=== PATIENT | female | born 1955 ===

== ENCOUNTER 2018-01-06 10:32 | Emergency (ER) | payer OTHER ==
[2018-01-06 10:39] VITALS: BMI 25.6
[2018-01-06 10:43] VITALS: RESP 18
[2018-01-06] MEDS ORDERED: Sodium Chloride 0.9% 1,000 ML IV ONE (11:07)
[2018-01-06 11:26] LABS: EOS # 0.1 K/uL (0.0-0.7); HEMOGLOBIN 12.4 g/dL (11.0-16.0); LYMPH % 23.4 % (20.0-40.0); NEUT # 7.4 K/uL (1.8-7.0); WHITE BLOOD COUNT 10.5 K/uL (4.8-10.8)
[2018-01-06 11:28] LABS: BASO % 0.2 % (0.0-2.0); EOS % 0.7 % (0.0-4.0); LYMPH # 2.5 K/uL (1.0-4.3); MEAN CELL VOLUME 85.4 fL (81.0-99.0); MEAN CORPUSCULAR HEMOGLOBIN 28.7 pg (27.0-31.0); MEAN CORPUSCULAR HGB CONC 33.6 g/dL (33.0-37.0); MEAN PLATELET VOLUME 9.3 fL (7.2-11.7); MONO # 0.6 K/uL (0.0-0.8); MONO % 5.3 % (0.0-10.0); NEUT % 70.4 % (50.0-75.0); RBC 4.33 Mil/uL (3.80-5.20); RED CELL DISTRIBUTION WIDTH 12.7 % (11.5-14.5)
[2018-01-06] MEDS ORDERED: Sodium Chloride 0.9% 1,000 ML ONE (11:30)
[2018-01-06 11:43] LABS: SQUAMOUS EPITHIAL 1 /hpf (0-5); URINE BILIRUBIN NEGATIVE (NEGATIVE); URINE BLOOD NEGATIVE (NEGATIVE); URINE CLARITY Clear (Clear); URINE COLOR Straw (YELLOW); URINE GLUCOSE (UA) 3+ mg/dL (Normal); URINE LEUKOCYTE ESTERASE NEG Leu/uL (Negative); URINE PROTEIN NEGATIVE (NEGATIVE); URINE UROBILINOGEN NORMAL mg/dL (0.2-1.0)
[2018-01-06 11:47] LABS: ALB/GLOB RATIO 1.4 (1.0-2.1); ALT/SGPT 30 U/L (9-52); AST/SGOT 17 U/L (14-36); BLOOD UREA NITROGEN 13 mg/dL (7-17); CALCIUM 9.5 mg/dl (8.6-10.4); GFR AFRICAN-AMERICAN > 60; GFR NON-AFRICAN AMERICAN > 60
--- NOTE | 2018-01-06 12:09 | RAD ---
Date of service: 01/06/2018 HISTORY: Diabetic COMPARISON: Comparison made with prior study 06/04/2016. Jase prior. TECHNIQUE: Chest PA and lateral FINDINGS: LUNGS: Mild bibasilar atelectasis. PLEURA: No significant pleural effusion identified. No pneumothorax apparent. CARDIOVASCULAR: Cardiomegaly. OSSEOUS STRUCTURES: Small bone islands or osteomas again seen within the right humeral head. There is also small calcific density adjacent to greater tuberosity right humeral head, consistent with calcific tendinitis or bursitis VISUALIZED UPPER ABDOMEN: Normal. OTHER FINDINGS: None. IMPRESSION: Mild bibasilar atelectasis. Cardiomegaly.
[2018-01-06] MEDS ORDERED: (Novolin R) Insulin Human Regular 100 units/ml vial IV ONE (12:25)
--- NOTE | 2018-01-06 12:26 | RAD ---
Date of service: 01/06/2018 PROCEDURE: Left Ankle Radiographs. HISTORY: ankle pain COMPARISON: None FINDINGS: BONES: Normal. No fracture. JOINTS: Normal. No osteoarthritis. Ankle mortise maintained. Talar dome intact SOFT TISSUES: Normal. OTHER FINDINGS: None. IMPRESSION: Normal left ankle radiographs.
--- NOTE | 2018-01-06 12:26 | RAD ---
PROCEDURE: Left Hip X-ray Radiographs. HISTORY: hip pain COMPARISON: None. FINDINGS: BONES: Normal. No fracture. JOINTS: Normal. SOFT TISSUES: Normal. OTHER FINDINGS: None. IMPRESSION: Normal left hip radiographs.
[2018-01-06] MEDS ORDERED: (Novolin R) Insulin Human Regular 100 units/ml vial ONE (12:38)
--- NOTE | 2018-01-06 13:30 | C.PDOC ---
History Of Present Illness 62yo female, comes to ER with complaints of left ankle pain and left hip pain for the past 4 days. Patient denies any trauma or injury to the areas; additionally, she denies any fever, chills, abdominal pain, chest pain, shortness of breath, calf pain, long periods of immobilization, or recent surgeries. Patient was noted to have a blood sugar level of > 500 in triage and she reports she has a history of diabetes but is compliant with medications. Otherwise, she has no other medical complaints. Time Seen by Provider: 01/06/18 10:49 Chief Complaint (Nursing): Lower Extremity Problem/Injury History Per: Patient History/Exam Limitations: no limitations Onset/Duration Of Symptoms: Days Current Symptoms Are (Timing): Still Present Additional History Per: Patient Past Medical History Reviewed: Historical Data, Nursing Documentation, Vital Signs Vital Signs: Last Vital Signs Temp 98.4 F 01/06/18 10:42 Pulse 84 01/06/18 10:42 Resp 18 01/06/18 10:42 BP 159/92 H 01/06/18 10:42 Pulse Ox 97 01/06/18 13:37 - Medical History PMH: Diabetes, HTN Denies: Chronic Kidney Disease Surgical History: Coronary Stent (3 yrs ago) - [facility] Procedures CORONAR ARTERIOGR-2 CATH (07/30/13) CORONARY ARTERY STENT INSERTION [id number] (08/05/13) INSERTION OF ONE VASCULAR STENT (08/05/13) LEFT HEART CARDIAC CATH (07/30/13) LT HEART ANGIOCARDIOGRAM (07/30/13) PERCUTANEOUS TRANSLUMINAL CORONARY ANGIOPLASTY [PTCA] (08/05/13) PROCEDURE ON SINGLE VESSEL (08/05/13) Family History: States: No Known Family Hx, Unknown Family Hx - Social History Hx Tobacco Use: No Hx Alcohol Use: No Hx Substance Use: No - Immunization History Hx Tetanus Toxoid Vaccination: No Hx Influenza Vaccination: No (Not sure) Hx Pneumococcal Vaccination: No (Not sure) Review Of Systems Except As Marked, All Systems Reviewed And Found Negative. Constitutional: Negative for: Fever, Chills Cardiovascular: Negative for: Chest Pain Respiratory: Negative for: Shortness of Breath Gastrointestinal: Negative for: Vomiting, Abdominal Pain Musculoskeletal: Positive for: Other (left hip, left ankle pain) Skin: Negative for: Rash Neurological: Negative for: Weakness, Numbness Physical Exam - Physical Exam Appears: Non-toxic, No Acute Distress Skin: Normal Color, Warm, Dry, No Rash Head: Atraumatic, Normacephalic Eye(s): bilateral: Normal Inspection, EOMI Neck: Normal ROM, Supple Chest: Symmetrical Cardiovascular: Rhythm Regular Respiratory: Normal Breath Sounds Gastrointestinal/Abdominal: Normal Exam, Soft, No Tenderness Back: Normal Inspection Extremity: Normal ROM (FROM left ankle and calf.), Tenderness (tenderness to left lateral hip, no swelling or redness; tenderness to left ankle), No Pedal Edema, No Calf Tenderness, Capillary Refill (< 2 seconds), No Deformity, No Swelling, Other (no palpable cord noted to left calf) Extremity: Bilateral: Atraumatic, Hips Non-Tender Pulses: Left Dorsalis Pedis: Normal, Right Dorsalis Pedis: Normal Neurological/Psych: Oriented x3, Normal Speech, Normal Cognition, Normal Motor, Normal Sensation ED Course And Treatment - Laboratory Results Result Diagrams: 01/06/18 11:22 01/06/18 11:22 ECG: Interpreted By Me, Viewed By Me ECG Rhythm: Sinus Rhythm Interpretation Of ECG: Normal axis, normal intervals, LVH, no St/T wave changes Rate From EC O2 Sat by Pulse Oximetry: 97 (RA) Pulse Ox Interpretation: Normal Medical Decision Making Medical Decision Making: Assessment: Hip pain, ankle pain, hyperglycemia Plan: -- EKG -- Labs -- IV FLuids -- Tramadol 50mg PO -- Human insulin 10 units -- XR left hip -- XR left ankle hyperglycemia leg pain patient repeat bs 202. images nad, will discharge patient home to follow up with pmd in 2 days. Disposition Counseled Patient/Family Regarding: Studies Performed, Diagnosis, Need For Followup, Rx Given - Disposition Referrals: Humberto John PA [Physician [facility]] - Disposition: HOME/ ROUTINE Disposition Time: 13:47 Condition: IMPROVED Additional Instructions: follow up with your doctor within in 2 days call to make an appointment take medication as needed for pain return to ER if symptoms worsens or progress Prescriptions: traMADol [Ultram] 50 mg PO TID PRN #12 tab PRN Reason: Pain, Moderate (4-7) Instructions: Hyperglycemia, Adult, Joint Pain Forms: Gen Discharge Inst Kazakh, [employer] (Kazakh) Print Language: CITIZEN OF [place] - Clinical Impression Clinical Impression: Hyperglycemia, Joint pain - Scribe Statement The provider has reviewed the documentation as recorded by the Hernandezibever Gaytan Provider Attestation: All medical record entries made by the Stephanie were at my direction and personally dictated by me. I have reviewed the chart and agree that the record accurately reflects my personal performance of the history, physical exam, medical decision making, and the department course for this patient. I have also personally directed, reviewed, and agree with the discharge instructions and disposition.
[2018-01-06 14:32] VITALS: BP 167/87; PULSE 71; TEMP 98; O2SAT 95
--- NOTE | 2018-01-06 17:18 | CARD ---
APPROVED REPORT Date of service: 01/06/2018 EKG Measurement Heart [id number] <Conclusion> Normal sinus rhythm Minimal voltage criteria for LVH, may be normal variant Borderline ECG
== END 2018-01-06 14:30 | disposition home or self-care (01) ==
LOC: C.ER 10:32
DX: E11.65 Type 2 diabetes mellitus with hyperglycemia (principal); M25.572 Pain in left ankle and joints of left foot; M25.552 Pain in left hip
CPT/HCPCS: 71046; 73502; 73610; 80053; 81001; 82948; 85025; 93005; 96361; 96374; 99285; J7030

== ENCOUNTER 2018-08-14 11:45 | Emergency (ER) | payer OTHER ==
[2018-08-14 11:46] VITALS: BMI 25.6
[2018-08-14 13:07] VITALS: RESP 18; TEMP 98.5; O2SAT 98
[2018-08-14 13:58] LABS: BASO # 0.1 K/uL (0.0-0.2); BASO % 0.5 % (0.0-2.0); EOS # 0.2 K/uL (0.0-0.7); EOS % 1.4 % (0.0-4.0); HEMOGLOBIN 13.1 g/dL (11.0-16.0); LYMPH # 3.7 K/uL (1.0-4.3); LYMPH % 27.3 % (20.0-40.0); MEAN CELL VOLUME 85.8 fL (81.0-99.0); MEAN CORPUSCULAR HEMOGLOBIN 28.5 pg (27.0-31.0); MEAN CORPUSCULAR HGB CONC 33.2 g/dL (33.0-37.0); MEAN PLATELET VOLUME 8.6 fL (7.2-11.7); MONO # 0.7 K/uL (0.0-0.8); NEUT % 65.8 % (50.0-75.0); NRBC % 0.1 % (0.0-2.0); RBC 4.61 Mil/uL (3.80-5.20); RED CELL DISTRIBUTION WIDTH 13.2 % (11.5-14.5); WHITE BLOOD COUNT 13.7 K/uL (4.8-10.8)
[2018-08-14 14:10] LABS: ALB/GLOB RATIO 1.3 (1.0-2.1); ALBUMIN 4.6 g/dL (3.5-5.0); ALT/SGPT 17 U/L (9-52); AST/SGOT 23 U/L (14-36); BLOOD UREA NITROGEN 21 mg/dL (7-17); CALCIUM 10.4 mg/dl (8.6-10.4); GFR NON-AFRICAN AMERICAN > 60
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
--- NOTE | 2018-08-14 14:52 | RAD ---
Date of service: 08/14/2018 HISTORY: r/o PTX COMPARISON: 01/06/2018 TECHNIQUE: Chest PA and lateral FINDINGS: LUNGS: No active pulmonary disease. PLEURA: No significant pleural effusion identified. No pneumothorax apparent. CARDIOVASCULAR: No aortic atherosclerotic calcification present. Normal cardiac size. No pulmonary vascular congestion. OSSEOUS STRUCTURES: No significant abnormalities. VISUALIZED UPPER ABDOMEN: Normal. OTHER FINDINGS: None. IMPRESSION: No active disease.
[2018-08-14 15:31] VITALS: BP 150/94; PULSE 78
--- NOTE | 2018-08-17 12:11 | CARD ---
APPROVED REPORT Date of service: 08/14/2018 EKG Measurement Heart [id number] <Conclusion> Normal sinus rhythm Left ventricular hypertrophy with repolarization abnormality Abnormal ECG
== END 2018-08-14 15:29 | disposition home or self-care (01) ==
LOC: C.ER 11:45
DX: T14.8XXA Other injury of unspecified body region, initial encounter (principal); V49.59XA Passenger injured in collision with other motor vehicles in traffic accident, initial encounter; Y92.410 Unspecified street and highway as the place of occurrence of the external cause; I25.10 Atherosclerotic heart disease of native coronary artery without angina pectoris; I10 Essential (primary) hypertension; E11.9 Type 2 diabetes mellitus without complications; Z95.5 Presence of coronary angioplasty implant and graft; F17.210 Nicotine dependence, cigarettes, uncomplicated
CPT/HCPCS: 71046; 80053; 84484; 85025; 93005; 96374; 99284; J1885